=== PATIENT | male | born 1965 | race Caucasian/White ===

== ENCOUNTER → 2019-10-04 09:56 | Outpatient (BNVA) | payer OTHER, SELFPAY | PROVIDERS: Visit Provider Nurse Practitioner Family | DX: J11.1 Influenza due to unidentified influenza virus with other respiratory manifestations (principal); Z23 Encounter for immunization; Z20.828 Contact with and (suspected) exposure to other viral communicable diseases; M54.5 Low back pain | CPT/HCPCS: 87804 ==

== ENCOUNTER → 2019-10-10 16:52 | Outpatient (BNVA) | payer OTHER, SELFPAY | PROVIDERS: Visit Provider Nurse Practitioner Family | DX: R09.89 Other specified symptoms and signs involving the circulatory and respiratory systems (principal); J10.1 Influenza due to other identified influenza virus with other respiratory manifestations | CPT/HCPCS: 87804 ==

== ENCOUNTER → 2019-12-11 17:42 | Outpatient (BNVA) | payer OTHER, SELFPAY | PROVIDERS: Visit Provider Nurse Practitioner Family | DX: E78.2 Mixed hyperlipidemia (principal) | CPT/HCPCS: 80053; 80061; 85025 ==

== ENCOUNTER → 2020-06-06 10:27 | Outpatient (BNVA) | payer OTHER, SELFPAY | PROVIDERS: Visit Provider Nurse Practitioner Family | DX: E78.5 Hyperlipidemia, unspecified (principal); K21.9 Gastro-esophageal reflux disease without esophagitis | CPT/HCPCS: 80053; 80061; 85025 ==

== ENCOUNTER → 2020-07-17 12:08 | Outpatient (BNVA) | payer OTHER, SELFPAY | PROVIDERS: Visit Provider Nurse Practitioner Family | DX: Z12.5 Encounter for screening for malignant neoplasm of prostate (principal); M54.5 Low back pain; K64.9 Unspecified hemorrhoids; M25.511 Pain in right shoulder; M25.512 Pain in left shoulder; G89.29 Other chronic pain; R39.11 Hesitancy of micturition | CPT/HCPCS: G0103 ==

== ENCOUNTER 2022-06-26 06:00 | Outpatient (RCR) | payer OTHER, SELFPAY | END 2022-06-29 23:59 | disposition home or self-care (01) | LOC: TPT 06:00 | PROVIDERS: Visit Provider Neurological Surgery | DX: M48.061 Spinal stenosis, lumbar region without neurogenic claudication (principal) | CPT/HCPCS: 97163 ==

== ENCOUNTER 2022-06-30 06:00 | Outpatient (RCR) | payer OTHER, SELFPAY | END 2022-07-29 23:59 | disposition home or self-care (01) | LOC: TPT 06:00 | PROVIDERS: Visit Provider Neurological Surgery | DX: M48.061 Spinal stenosis, lumbar region without neurogenic claudication (principal) | CPT/HCPCS: 97110; 97530 ==

== ENCOUNTER 2022-07-30 06:00 | Outpatient (RCR) | payer OTHER, SELFPAY | END 2022-08-29 23:59 | disposition home or self-care (01) | LOC: TPT 06:00 | PROVIDERS: Visit Provider Neurological Surgery | DX: M48.061 Spinal stenosis, lumbar region without neurogenic claudication (principal) | CPT/HCPCS: 97110 ==

== ENCOUNTER 2022-08-30 06:00 | Outpatient (RCR) | payer OTHER, SELFPAY | END 2022-09-29 23:59 | disposition home or self-care (01) | LOC: TPT 06:00 | PROVIDERS: Visit Provider Neurological Surgery | DX: M48.061 Spinal stenosis, lumbar region without neurogenic claudication (principal) | CPT/HCPCS: 97110 ==

== ENCOUNTER 2022-09-30 06:00 | Outpatient (RCR) | payer OTHER, SELFPAY | END 2022-10-27 23:59 | disposition home or self-care (01) | LOC: TPT 06:00 | PROVIDERS: Visit Provider Neurological Surgery | DX: M48.061 Spinal stenosis, lumbar region without neurogenic claudication (principal) | CPT/HCPCS: 97110 ==

== ENCOUNTER 2022-10-28 06:00 | Outpatient (RCR) | payer OTHER, SELFPAY | END 2022-11-18 23:59 | disposition home or self-care (01) | LOC: TPT 06:00 | PROVIDERS: Visit Provider Neurological Surgery | DX: M48.061 Spinal stenosis, lumbar region without neurogenic claudication (principal) | CPT/HCPCS: 97110 ==

== ENCOUNTER 2025-07-25 08:48 | Outpatient (RCR) | payer MEDICARE, SELFPAY | END 2025-07-29 23:59 | disposition home or self-care (01) | LOC: TPT 08:48 | PROVIDERS: Visit Provider Physical Medicine & Rehabilitation | DX: R53.1 Weakness (principal) | CPT/HCPCS: 97110; 97162; 97530 ==

== ENCOUNTER 2025-08-21 12:29 | Outpatient (RCR) | payer MEDICARE, SELFPAY | END 2025-08-29 23:59 | disposition home or self-care (01) | LOC: TPT 12:29 | PROVIDERS: Visit Provider Physical Medicine & Rehabilitation | DX: R53.1 Weakness (principal) | CPT/HCPCS: 97110; 97530 ==